=== PATIENT | male | born 1995 | race Caucasian/White ===

== ENCOUNTER 2024-02-13 22:08 | Emergency (ER) | payer SELFPAY ==
[2024-02-13] MEDS ORDERED: Ondansetron PF 4 MG/2 ML Vial ONE (22:26)
[2024-02-13] MEDS ORDERED: HYDROmorphone 0.5 MG/0.5 ML SYRINGE ONE (22:26)
[2024-02-13] MEDS ORDERED: Boostrix 0.5 ML (Tdap) VIAL (>/=7 yrs of age) ONE (23:14)
[2024-02-13] MEDS ORDERED: Ketorolac Tromethamine 30 MG (1 mL) VIAL ONE (23:29)
[2024-02-13] MEDS ORDERED: Morphine 4 MG/ML VIAL ONE (23:29)
[2024-02-14] MEDS ORDERED: Bacitracin 1 PK ONE (01:40)
[2024-02-14] MEDS ORDERED: CEFAZOLIN 2 GM VIAL ONE (01:40)
[2024-02-14] MEDS ORDERED: Sodium Chloride 0.9% 100 ML ONE (01:42)
== END 2024-02-14 02:03 | disposition short-term general hospital (02) ==
LOC: ERS 22:08
DX: T23.252A Burn of second degree of left palm, initial encounter (principal); X16.XXXA Contact with hot heating appliances, radiators and pipes, initial encounter; Y93.89 Activity, other specified; Z23 Encounter for immunization
CPT/HCPCS: 90471; 90715; 96374; 96375; J1170; J1885; J2270; J2405; J3490